=== PATIENT | male | born 1955 | race Caucasian/White ===

== ENCOUNTER → 2024-09-10 | Outpatient (CLI) | payer MEDICARE, BC, SELFPAY ==
[2024-09-10 10:31] LABS: Glucose Estimated Average 269 mg/dL (80-131)
[2024-09-10 10:45] LABS: Alanine Aminotransferase 22 U/L (10-49); Albumin, Serum 4.2 gm/dL (3.4-4.8); Albumin/Globulin Ratio 1.8 (1.2-2.2); Alkaline Phosphatase 113 U/L (46-116); Anion Gap 6 (7-16); Aspartate Amino Transferase 13 U/L (0-34); BUN/Creatinine Ratio 18 Ratio (12-20); Bilirubin,Total 0.6 mg/dL (0.3-1.2); Blood Urea Nitrogen 16 mg/dL (9-23); Calcium 8.7 mg/dL (8.3-10.6); Calcium (Corrected) 8.7 mg/dL (8.5-10.1); Carbon Dioxide 26.8 mMol/L (20.0-31.0); Cardiac Risk Estimate 2.7 RATIO (4.0-6.7); Chloride 104 mMol/L (98-107); Cholesterol 123 mg/dL (132-200); Creatinine (Component) 0.9 mg/dL (0.6-1.3); Globulin 2.3 gm/dL (2.3-3.5); Glucose 162 mg/dL (74-106); HDL Cholesterol 45 mg/dL (40-60); LDL Cholesterol,Calculated 58 mg/dL (0-130); Osmolality,Calculated 279 (275-295); Sodium 137 mMol/L (136-145); Total Protein 6.5 gm/dL (5.7-8.2); Triglycerides 98 mg/dL (30-150); eGFR > 60 See Note
[2024-09-10 10:46] LABS: Creatinine MALB Rnd Ur 121 mg/dL (30-125); Microalbumin Creat Ratio 5 mg/gCrea (<30); Microalbumin, Random Urine 6 mg/L (0-300)
[2024-09-10 14:52] LABS: Prostate Specific Antigen 0.41 ng/mL (0-4.00)
== END | disposition home or self-care (01) ==
PROVIDERS: PCP Family Medicine; Referring Provider Family Medicine; Visit Provider Family Medicine
DX: E11.65 Type 2 diabetes mellitus with hyperglycemia (principal); E78.1 Pure hyperglyceridemia; N42.9 Disorder of prostate, unspecified
CPT/HCPCS: 36415; 80053; 80061; 82043; 82570; 83036; 84153

== ENCOUNTER → 2024-09-18 | Outpatient (CLI) | payer MEDICARE, BC, SELFPAY ==
[2024-09-18 16:26] LABS: OBS Card Expiration Date 2026-09; OBS Card Lot # 23001; OBS Performed By LAB; OBS QC OK? Yes
[2024-09-18 18:46] LABS: OBS Developer Lot # 75023G
[2024-09-18 18:47] LABS: Occult Blood, Stool Negative (Negative); Occult Blood, Stool #2 Negative (Negative); Occult Blood, Stool #3 Negative (Negative)
== END | disposition home or self-care (01) ==
LOC: SLDO 16:09
PROVIDERS: PCP Family Medicine; Referring Provider Family Medicine; Visit Provider Family Medicine
DX: Z12.11 Encounter for screening for malignant neoplasm of colon (principal)
CPT/HCPCS: 82270